=== PATIENT | female | born 1995 | race Caucasian/White ===

== ENCOUNTER → 2018-09-16 | Outpatient (CLI) | payer OTHER | LOC: MC.RAD 08:51 | DX: N63.21 Unspecified lump in the left breast, upper outer quadrant (principal) ==

== ENCOUNTER → 2018-10-02 | Outpatient (CLI) | payer OTHER | LOC: MC.RAD 06:51 | DX: N63.21 Unspecified lump in the left breast, upper outer quadrant (principal); N61.1 Abscess of the breast and nipple; Z85.3 Personal history of malignant neoplasm of breast ==